=== PATIENT | male | born 1955 | race Caucasian/White ===

== ENCOUNTER → 2018-05-07 | Outpatient (REF) | payer BC | LOC: M SFHCLERA 17:32 | DX: L02.415 Cutaneous abscess of right lower limb (principal) | CPT/HCPCS: 87186 ==

== ENCOUNTER → 2018-05-07 | Outpatient (CLI) | payer BC, OTHER | LOC: M LRY 17:17 | DX: M25.461 Effusion, right knee (principal); M25.761 Osteophyte, right knee | CPT/HCPCS: 73564 ==

== ENCOUNTER → 2021-02-24 | Outpatient (CLI) | payer BC ==
[~2021-02-24] MED LIST: ACET65TA OR; ASPI325T OR; BACT800T OR; D31000TA2 PO; DILT60TA PO; EZET10TA21 PO; IBUP200C28 PO; No Historical Meds; PERC5TAB8 OR; PERC7.5T8 OR; RAMI1CAP24 PO; ROSU40TA4 PO; VITMTA PO
== END ==
LOC: M LABSMTC 09:46
PROVIDERS: ATTEND Anesthesiology
DX: Z01.812 Encounter for preprocedural laboratory examination (principal); Z20.822 Contact with and (suspected) exposure to COVID-19

== ENCOUNTER 2021-03-01 06:56 | Day surgery (SDC) | payer OTHER ==
[~2021-03-01] VITALS: Ht 177.8 cm; Wt 80.9 kg
[~2021-03-01 06:56] MED LIST changes: +NS 1,000 ML IV ONE
[2021-03-01] MEDS ORDERED: LIDOCAINE 2% 100MG/5ML SDV (FOR ANES.) As Ordered ONE (08:02)
[2021-03-01] MEDS ORDERED: propofoL 200 MG/20 ML VIAL As Ordered ONE ×2 (08:03→08:11)
--- NOTE | 2021-03-01 08:37 | ROOR ---
Patient Name: Mohan Leyva Procedure Date: 03/01/2021 7:52 AM Date of : 1955 Age: 65 Room: [facility] Gender: Male Note Status: Finalized Procedure: Colonoscopy Indications: Screening for colorectal malignant neoplasm Providers: DO Joey Blevins MD: Anthony Moran MD Requesting Provider: Medicines: Propofol per Anesthesia Complications: No immediate complications. Procedure: Pre-Anesthesia Assessment: - Prior to the procedure, a History and Physical was performed, and patient medications and allergies were reviewed. The patient is competent. The risks and benefits of the procedure and the sedation options and risks were discussed with the patient. All questions were answered and informed consent was obtained. Patient identification and proposed procedure were verified by the physician, the nurse, the anesthesiologist and the library cataloging technician in the endoscopy suite. Mental Status Examination: alert and oriented. Airway Examination: normal oropharyngeal airway and neck mobility. Respiratory Examination: clear to auscultation. CV Examination: normal. Prophylactic Antibiotics: The patient does not require prophylactic antibiotics. Prior Anticoagulants: The patient has taken no previous anticoagulant or antiplatelet agents. ASA Grade Assessment: III - A patient with severe systemic disease. After reviewing the risks and benefits, the patient was deemed in satisfactory condition to undergo the procedure. The anesthesia plan was to use monitored anesthesia care (MAC). Immediately prior to administration of medications, the patient was re-assessed for adequacy to receive sedatives. The heart rate, respiratory rate, oxygen saturations, blood pressure, adequacy of pulmonary ventilation, and response to care were monitored throughout the procedure. The physical status of the patient was re-assessed after the procedure. The Colonoscope was introduced through the anus and advanced to the cecum, identified by appendiceal orifice and ileocecal valve. The colonoscopy was performed without difficulty. The patient tolerated the procedure well. Findings: Multiple hyperplastic polyps were found in the sigmoid colon, transverse colon and ascending colon. The polyps were 2 to 6 mm in size. These polyps were removed with a jumbo cold forceps. Resection and retrieval were complete. Estimated blood loss was minimal. Five hyperplastic polyps were found in the sigmoid colon. The polyps were 4 to 8 mm in size. These polyps were removed with a hot snare. Resection and retrieval were complete. Estimated blood loss was minimal. Non-bleeding internal hemorrhoids were found during retroflexion. The hemorrhoids were Grade II (internal hemorrhoids that prolapse but reduce spontaneously). Impression: - Multiple 2 to 6 mm polyps in the sigmoid colon, in the transverse colon and in the ascending colon, removed with a jumbo cold forceps. Resected and retrieved. - Five 4 to 8 mm polyps in the sigmoid colon, removed with a hot snare. Resected and retrieved. - Non-bleeding internal hemorrhoids. Recommendation: - Patient has a contact number available for emergencies. The signs and symptoms of potential delayed complications were discussed with the patient. Return to normal activities tomorrow. Written discharge instructions were provided to the patient. - Await pathology results. - Repeat colonoscopy in 3 years for surveillance of multiple polyps. - Return to my office at appointment to be scheduled. Procedure Code(s): --- Professional --- 98151, Colonoscopy, flexible; with removal of tumor(s), polyp(s), or other lesion(s) by snare technique 06693, 59, Colonoscopy, flexible; with biopsy, single or multiple Diagnosis Code(s): --- Professional --- Z12.11, Encounter for screening for malignant neoplasm of colon K63.5, Polyp of colon K64.1, Second degree hemorrhoids CPT copyright 2019 [employer]. All rights reserved. The codes documented in this report are preliminary and upon him coder review may be revised to meet current compliance requirements. Thom Baker DO 03/01/2021 8:36:53 AM Electronically signed by Thom Baker DO Number of Addenda: 0 Note Initiated On: 03/01/2021 7:52 AM Estimated Blood Loss: Estimated blood loss was minimal.
[2021-03-01 08:55] VITALS: BP 135/83
== END 2021-03-01 09:19 | disposition home or self-care (01) ==
LOC: M OPP 06:56
PROVIDERS: ATTEND Surgery
DX: Z12.11 Encounter for screening for malignant neoplasm of colon (principal); K63.5 Polyp of colon; K64.1 Second degree hemorrhoids; Z79.899 Other long term (current) drug therapy; Z88.8 Allergy status to other drugs, medicaments and biological substances; Z91.048 Other nonmedicinal substance allergy status; F17.210 Nicotine dependence, cigarettes, uncomplicated